=== PATIENT | male | born 1945 | race Caucasian/White ===

== ENCOUNTER 2017-03-15 11:27 | Emergency (ER) | payer MEDICARE, MEDICAID ==
[~2017-03-15] VITALS: Ht 175.3 cm; Wt 85.0 kg
[~2017-03-15 11:27] MED LIST: AMIT25TA9 PO; AMLO10TA4 PO; ASPI-1159 PO; ASPI-518 PO; ATEN100T PO; ATOR10TA PO; CLAR10 PO; DOCU-138 PO; ENAL20TA67 PO; EPINEPHRINE 0.1MG/ML (1:10,000) 10ML SYR ONE; ETOMIDATE 2MG/ML 10ML VIAL IV ONE; GLIP10TA10 PO; GLIP2.5T3 PO; INSU100I7 SQ; LEVPEN SQ; LEVVL SQ; MAGN800O PO; MULT1TAB11 PO; OMEP40CA PO; SUCCINYLCHOLINE CHLORIDE 200MG/10ML VIAL IV ONE; TAMS-11 PO; [UNRECOGNIZED DRUG - CODE] PO
[2017-03-15] MEDS ORDERED: ONDANSETRON HCL 4MG/2ML VIAL IV STA (12:36)
[2017-03-15] MEDS ORDERED: SODIUM CHLORIDE 0.9% 1,000 ML IV ONE (12:45)
[2017-03-15] MEDS ORDERED: FAMOTIDINE 20MG/2ML VIAL IV ONE (12:45)
[2017-03-15 13:20] LABS: BASOPHILS % 0.3 % (0.0-2.0); HEMATOCRIT. 54.5 % (42.0-52.0); HEMOGLOBIN. 17.2 g/dL (14.0-18.0); LYMPHOCYTES % 9.7 % (20.0-50.0); MEAN CORPUSCULAR HEMOGLOBIN 29.2 pg (28.0-32.0); MEAN CORPUSCULAR VOLUME 92.4 fL (80.0-94.0); MEAN PLATELET VOLUME 9.3 fl (7.4-10.4); MONOCYTES % 4.8 % (2.0-8.0); NEUTROPHILS % 85.2 % (40.0-76.0); PLATELET 403 x1000/uL (130-400)
[2017-03-15 13:27] LABS: INR 1.1; PROTHROMBIN TIME 11.3 sec (9.4-11.6)
[2017-03-15] MEDS ORDERED: SODIUM CHLORIDE 0.9% 1000ML BAG (SEPSIS BOLUS) IV ONE ×2 (13:30→15:15)
[2017-03-15 13:34] LABS: CARBON DIOXIDE 18 mEq/L (21-32); CHLORIDE 99 mEq/L (98-107)
[2017-03-15 13:39] VITALS: BP 106/61
[2017-03-15 13:58] LABS: BG BASE EXCESS -17.8 mmol/L (-2.0-2.0); BG CARBOXYHEMOGLOBIN 0.9 % (0.5-1.5); BG DEOXYHEMOGLOBIN 8.6 % (0.0-5.0); BG FRACTION INSPIRED OXYGEN 32; BG HCO3 ACT 7.1 mmol/L (22.0-26.0); BG METHEMOGLOBIN 0.5 % (0.0-1.5); BG OXYGEN SATURATION 91.3 % (92.0-98.5); BG PCO2 17.4 mmHg (35.0-45.0); BG SAMPLE SITE RIGHT BRACHIAL; BG VENT MODE NASAL CANNULA
[2017-03-15] MEDS ORDERED: INSULIN REGULAR (HUMULIN R) UD 100 UNITS/ML SYR IV ONE (14:00)
[2017-03-15 14:29] LABS: AMMONIA 32 uMol/L (<32)
[2017-03-15] MEDS ORDERED: ONDANSETRON HCL 4MG/2ML VIAL IV ONE (15:15)
[2017-03-15] MEDS ORDERED: PIPERACILLIN/TAZOBACTAM 3.375GM/50ML PREMIX IV ONE (15:15)
[2017-03-15] MEDS ORDERED: INSULIN REGULAR (HUMULIN R) 300UNITS/3ML IV ONE (15:30)
[2017-03-15] MEDS ORDERED: PIPERACILLIN/TAZ 3.375G PREMIX 50 ML IV SCH (15:30)
[2017-03-15] MEDS ORDERED: NOREPINEPHRINE 4 MG in SODIUM CHLORIDE 0.9% 250 ML IV ONE (15:45)
[2017-03-15] MEDS ORDERED: NOREPINEPHRINE IV ONE (15:45)
[2017-03-15] MEDS ORDERED: SODIUM CHLORIDE 0.45% IV ONE (15:45)
[2017-03-15] MEDS ORDERED: NOREPINEPHRINE 4 MG in DEXT 5% WATER 246 ML IV ONE (15:45)
[2017-03-15] MEDS ORDERED: NOREPINEPHRINE IV NR (16:30)
[2017-03-15] MEDS ORDERED: WATER IV NR (16:30)
[2017-03-15] MEDS ORDERED: DEXT 5% IV NR (16:30)
[2017-03-15] MEDS ORDERED: VASOPRESSIN 10 UNIT in SODIUM CHLORIDE 0.9% 99.5 ML IV PRN ×2 (17:30→17:45)
== END 2017-03-15 17:50 | disposition expired ==
LOC: ER 11:31 → EDBEDREQTM 15:26 → EDBEDREQ 15:26 → EDBEDREQSVC 15:26 → ER 17:50 → CANBEDREQ 20:23
DX: I46.9 Cardiac arrest, cause unspecified (principal); K63.89 Other specified diseases of intestine; E11.9 Type 2 diabetes mellitus without complications; K21.9 Gastro-esophageal reflux disease without esophagitis; I10 Essential (primary) hypertension; Z79.4 Long term (current) use of insulin; Z79.82 Long term (current) use of aspirin
CPT/HCPCS: 31500; 36415; 36556; 36600; 74176; 80053; 82140; 82375; 82805; 82962; 83690; 85025; 85610; 86850; 86900; 86901; 92950; 93005; 96361; 96365; 96366; 96375; 99291; J0171; J0330; J1815; J2405; J2543; J3490; J7040; 94002; J7030; J7050; J7060